=== PATIENT | female | born 1970 | race Caucasian/White ===

== ENCOUNTER → 2017-11-14 15:35 | Outpatient (CLI) | payer OTHER, SELFPAY ==
[2017-11-18 11:32] LABS: HPV HC, High Risk Negative (Negative)
== END ==
PROVIDERS: Visit Provider Obstetrics & Gynecology
DX: Z12.4 Encounter for screening for malignant neoplasm of cervix (principal)
CPT/HCPCS: 87624; 88175; G0145

== ENCOUNTER → 2018-02-03 10:59 | Outpatient (CLI) | payer OTHER, SELFPAY ==
--- NOTE | 2018-02-03 11:01 | BI_ITS ---
MAMMOGRAPHY - BILATERAL SCREENING REASON FOR EXAM: Female, 47 years old. Routine annual screening examination. PERTINENT HISTORY: Aunt with breast cancer. TECHNIQUE: Digital bilateral breast jose (3D mammographic acquisition) in the CC and MLO projections. 2-D mediolateral oblique (MLO) and craniocaudad (CC) views of both breasts were obtained. CAD: Full Field Digital Mammography with Computer Added Detection was performed. COMPARISON: Comparison is made with prior study dated February 01, 2017 and January 27, 2016. FINDINGS: Breast Composition: The breasts are heterogeneously dense, which may obscure small masses. There are no dominant masses or suspicious calcifications. No other significant abnormalities are identified. There has been no significant change since the prior study. BI/SCREENING MAMM (CAD), BILAT IMPRESSION: Stable bilateral screening mammogram. Yearly follow-up mammogram recommended. (A) ASSESSMENT CATEGORY: BIRADS Category 1: Negative. A letter regarding these results will be sent to the patient by the facility within 30 days. Approximately 10% of breast cancers are not detected by mammography. A normal mammogram should not delay biopsy of a clinically suspicious abnormality. [id number] Electronically Signed: Lonnie Yañez MD at 11:05 EST Tel [phone], Service support ,
== END ==
PROVIDERS: Family Provider Family Medicine; PCP Family Medicine; Referring Provider Obstetrics & Gynecology; Visit Provider Obstetrics & Gynecology
DX: Z12.31 Encounter for screening mammogram for malignant neoplasm of breast (principal)
CPT/HCPCS: 77063; 77067

== ENCOUNTER → 2018-11-12 14:35 | Outpatient (CLI) | payer OTHER, SELFPAY ==
[2018-11-11 14:25] VITALS: BMI 20.9
[2018-11-12 14:37] LABS: Mucous, Urine 0 SEEN /hpf (<or=2+)
[2018-11-12 14:49] LABS: Color, Urine Yellow (Yellow); Glucose, Dipstick Normal (Normal); Ketone-Dipstick 5 mg/dl (Negative); Leukocyte Esterase-Dipstick 100 /ul (Negative); Nitrite-Dipstick Negative (Negative); Occult Blood-Urine 250 /ul (Negative); Protein-Dipstick 30 mg/dl (Negative); Urine Bilirubin Dipstick Negative (Negative); Urine Clarity Sl. Cloudy (Clear); Urine Urobilinogen Normal (Normal)
[2018-11-12 14:56] LABS: Bacteria RARE /hpf (None Seen); Calcium Oxalate Crystals Ur 1+ /hpf (<or=2+); Red Blood Cells-Urine 10-25 SEEN /hpf (0-5); Squamous Epithelial Cells - UA 0-5 SEEN /hpf (5-10); White Blood Cells 0-5 SEEN /hpf (0-5)
== END ==
PROVIDERS: Family Provider Family Medicine; PCP Family Medicine; Referring Provider Physician Assistant Medical; Visit Provider Physician Assistant Medical
DX: R31.9 Hematuria, unspecified (principal)
CPT/HCPCS: 81001; 87086; 87088

== ENCOUNTER → 2018-11-16 | Outpatient (CLI) | payer OTHER, SELFPAY ==
[2018-11-11 14:25] VITALS: BMI 20.9
--- NOTE | 2018-11-16 11:25 | US_ITS ---
STUDY: RENAL ULTRASOUND - COMPLETE REASON FOR EXAM: Female, 48 years old. Gross hematuria. TECHNIQUE: Ultrasound evaluation of the kidneys was performed with real-time and static byrd-scale imaging. COMPARISON: None. FINDINGS: RIGHT KIDNEY: Normal location of the right kidney, which is normal in size. The right kidney measures 9.7 x 4.8 x 5.0 cm. There is a normal cortex of the right kidney. The renal cortex measures 1.6 cm. There is no right renal mass or cyst. There are no right renal calculi. There is no right hydronephrosis. DISTAL RIGHT URETER: There is non-visualization of the distal right ureter. There is no demonstrated right ureterovesical junction calculus. There is a visualized right ureteral jet. LEFT KIDNEY: Normal location of the left kidney, which is normal in size. The left kidney measures 10.8 x 5.5 x 4.5 cm. There is a normal cortex of the left kidney. The renal cortex measures 1.5 cm. There is no left renal mass or cyst. There are no left renal calculi. There is no left hydronephrosis. DISTAL LEFT URETER: There is non-visualization of the distal left ureter. There is no demonstrated left ureterovesical junction calculus. There is a visualized left ureteral jet. BLADDER: The distended urinary bladder has a volume of 458 ml. The empty urinary bladder has a volume of 0 ml. There is a normal wall thickness of the distended urinary bladder. There is no demonstrated mass within the urinary bladder. There are no demonstrated bladder calculi. Incidentally noted is a 4.9 cm low echogenicity but possibly solid mass in the left pelvis, most likely ovarian in origin. Pelvic ultrasound is recommended. US/Kidney and Bladder IMPRESSION: Normal ultrasound of the kidneys and urinary bladder. Possible 4.9 cm left ovarian mass. Pelvic ultrasound recommended. Electronically Signed: Raymond Aguayo MD at 17:26 EDT , Service support ,
== END | disposition home or self-care (01) ==
PROVIDERS: Family Provider Family Medicine; PCP Family Medicine; Referring Provider Family Medicine; Visit Provider Family Medicine
DX: R30.0 Dysuria (principal)
CPT/HCPCS: 76770

== ENCOUNTER → 2018-11-24 | Outpatient (CLI) | payer OTHER, SELFPAY ==
[2018-11-11 14:25] VITALS: BMI 20.9
--- NOTE | 2018-11-24 14:40 | US_ITS ---
We are attempting to reach an attending provider to discuss findings. An addendum with communication details will be sent when the communication is complete. STUDY: ULTRASOUND OF THE FEMALE PELVIS - COMPLETE REASON FOR EXAM: Female, 48 years old. Ovarian mass TECHNIQUE: Transabdominal and transvaginal ultrasound images were obtained of the pelvis TECHNICAL QUALITY: Adequate. COMPARISON: None. FINDINGS: The uterus measures 7.5 x 4 x 3.7 cm. Normal uterine cervix. The endometrium measures 2 mm in thickness. There is no demonstrated myometrial mass. The right ovary measures 1.6 x 1.4 x 0.9 cm. There is no right ovarian cyst or ovarian mass. There is no visualized right adnexal mass or complex lesion. There is normal arterial and normal venous vascularity. The left ovary measures 4.8 x 4.7 x 3.8 cm. There is enlargement of the left ovary with a masslike appearance and increased vascular flow within it. There is normal arterial and normal venous vascularity. There is no fluid in the cul-de-sac. US/Pelvic (Non ) IMPRESSION: Enlargement of the left ovary measuring 4.8 x 4.7 x 3.8 cm in size with a masslike appearance, with differential including hemorrhagic ovarian cyst, benign or malignant ovarian tumor, among other etiologies. Pelvic MRI is suggested for further characterization. Gynecologic consultation is suggested. Electronically Signed: Molina Johnson, at 17:56 EDT Tel , Service support ,
--- NOTE | 2018-11-24 15:09 | US_ITS ---
We are attempting to reach an attending provider to discuss findings. An addendum with communication details will be sent when the communication is complete. STUDY: ULTRASOUND OF THE FEMALE PELVIS - COMPLETE REASON FOR EXAM: Female, 48 years old. Ovarian mass TECHNIQUE: Transabdominal and transvaginal ultrasound images were obtained of the pelvis TECHNICAL QUALITY: Adequate. COMPARISON: None. FINDINGS: The uterus measures 7.5 x 4 x 3.7 cm. Normal uterine cervix. The endometrium measures 2 mm in thickness. There is no demonstrated myometrial mass. The right ovary measures 1.6 x 1.4 x 0.9 cm. There is no right ovarian cyst or ovarian mass. There is no visualized right adnexal mass or complex lesion. There is normal arterial and normal venous vascularity. The left ovary measures 4.8 x 4.7 x 3.8 cm. There is enlargement of the left ovary with a masslike appearance and increased vascular flow within it. There is normal arterial and normal venous vascularity. There is no fluid in the cul-de-sac. US/Transvaginal Non- IMPRESSION: Enlargement of the left ovary measuring 4.8 x 4.7 x 3.8 cm in size with a masslike appearance, with differential including hemorrhagic ovarian cyst, benign or malignant ovarian tumor, among other etiologies. Pelvic MRI is suggested for further characterization. Gynecologic consultation is suggested. Electronically Signed: Molina Johnson, at 17:56 EDT Tel , Service support ,
== END | disposition home or self-care (01) ==
LOC: US 14:33
PROVIDERS: Family Provider Family Medicine; PCP Family Medicine; Referring Provider Urology; Visit Provider Urology
DX: R31.0 Gross hematuria (principal); N83.209 Unspecified ovarian cyst, unspecified side
CPT/HCPCS: 76830; 76856; 93976

== ENCOUNTER → 2018-11-30 | Outpatient (CLI) | payer OTHER, SELFPAY ==
[2018-11-11 14:25] VITALS: BMI 20.9
--- NOTE | 2018-11-30 17:42 | CT_ITS ---
STUDY: CT ABDOMEN AND PELVIS WITH AND WITHOUT CONTRAST REASON FOR EXAM: Female, 48 years old. Gross hematuria RADIATION DOSAGE (If Supplied By Facility): CTDIvol = ( 10.85 ) mGy, DLP = ( 1420.98 ) mGycm TECHNIQUE: Transaxial images were obtained from the dome of the diaphragm to the symphysis pubis without oral contrast. 100 IV Isovue 370 was administered. Sagittal and coronal images were reconstructed. Individualized dose optimization techniques were used for this CT. COMPARISON: Ultrasound November 24, 2018 pelvis FINDINGS: The visualized lung bases are unremarkable. The visualized portions of the heart are within normal limits. Normal liver. Normal gallbladder and extrahepatic biliary system. Normal spleen. Normal pancreas. Normal bilateral adrenal glands. Normal right kidney. Normal left kidney. There is a small hiatal hernia. There is a distended appearance of the distal small bowel likely due to the amount of stool within the cecum and/or stasis. There is abundant stool in the colon. This is seen from the cecum to the mid abdomen where there is a tortuous appearance of the bowel and focal narrowing of the proximal sigmoid. The appendix is visualized and appears normal. Normal abdominal aorta. Normal inferior vena cava. Normal retroperitoneum. Normal urinary bladder. Is no visualized radiographic focal thickening of the bladder. With the delayed images there is no filling defect within the contrasted portion of the base of the bladder. Normal visualized uterus. There is a hyperdense appearing cystic structure in the left adnexa measuring 4.7 x 3.8 cm with Hounsfield units in the range of possibly solid or complex. Normal abdominal wall. There is mild multilevel spondylosis. CT/CT Abd/Pelvis W/WO Contrast IMPRESSION: There is an atypical appearing left ovarian mass with elevated Hounsfield units and enhancement with contrast with the differential including hemorrhagic cyst complex cyst or ovarian neoplasm for which further evaluation is recommended including a [employer] consult. Recent ultrasound has described similar findings. A follow-up MRI of the pelvis could potentially be helpful for further characterization clinically appropriate. No visualized renal ureteral or bladder calculi or evidence of renal mass. No visualized abnormal wall thickening of the bladder. Constipation. Recommend consideration for a follow-up study such barium enema to further evaluate the tortuosity and/or focal narrowing within the proximal sigmoid. There is no apparent associated mass this may be related to tortuosity. Electronically Signed: Jennifer Martel MD at 12:58 EDT Tel , Service support ,
== END | disposition home or self-care (01) ==
LOC: CT 17:39
PROVIDERS: Family Provider Family Medicine; PCP Family Medicine; Referring Provider Urology; Visit Provider Urology
DX: N83.209 Unspecified ovarian cyst, unspecified side (principal); R31.0 Gross hematuria
CPT/HCPCS: 74178; Q9967

== ENCOUNTER → 2018-12-05 | Outpatient (CLI) | payer OTHER, SELFPAY ==
[2018-11-11 14:25] VITALS: BMI 20.9
--- NOTE | 2018-12-05 | FLU_PTH ---
PATIENT: RUPAL SALEEM LOC: LAB U#:[id number] AGE/SX: 48/F ROOM: RE12/05/[address]: Dr. Lesvia Arteaga MD : 1970 BED: DIS: 12/05/2018 SPEC #: [id number] RECD: 12/05/18 13:21 STATUS: BRANDAN TIAN #: [id number] ISAMAR: 12/05/18 00:[address]: Lesvia Arteaga DEPT: CYTOLOGY RECD BY: Leslie Perla ENTERED: 12/06/18 09:08 SP TYPE: Fluid OTHR DR: MD Dr. Jerrod Davis MD Tissues: Urine Procedures: Special Stain Group II Cytospin Fluid HEADER OPERATION: Not noted PRE-OP DIAGNOSIS: Ovarian mass, gross hematuria, N83.291, R31.0 TISSUE SUBMITTED: Urine for cytology DIAGNOSIS CYTOLOGY Urine for cytology (cytospin): Negative for malignant cells. Marked acute inflammation. See comment. SJ:rg 12/07/18 COMMENT Organisms consistent with bacteria are also noted. Correlation with clinical findings and appropriate follow up are necessary. CYTOLOGY STUDY Slides are reviewed. CYTOLOGY GROSS Received is 50 ml of yellow cloudy fluid labeled with the patient's name and and designated per the requisition as urine. Submitted for cytology preparation. /CC:cc 12/06/18 TC:2 CPT: 60920
--- NOTE | 2018-12-05 | FLU_PTH ---
PATIENT: RUPAL SALEEM LOC: LAB U#:[id number] AGE/SX: 48/F ROOM: RE12/05/[address]: Dr. Lesvia Arteaga MD : 1970 BED: DIS: 12/05/2018 SPEC #: [id number] RECD: 12/05/18 13:21 STATUS: BRANDAN TIAN #: [id number] ISAMAR: 12/05/18 00:[address]: Lesvia Arteaga DEPT: CYTOLOGY RECD BY: Leslie Perla ENTERED: 12/06/18 09:08 SP TYPE: Fluid OTHR DR: MD Dr. Jerrod Davis MD Tissues: Urine Procedures: Special Stain Group II Cytospin Fluid HEADER OPERATION: Not noted PRE-OP DIAGNOSIS: Ovarian mass, gross hematuria, N83.291, R31.0 TISSUE SUBMITTED: Urine for cytology DIAGNOSIS CYTOLOGY Urine for cytology (cytospin): Negative for malignant cells. AM:joe 12/07/18 CYTOLOGY STUDY Slides are reviewed. CYTOLOGY GROSS Received is 50 ml of yellow cloudy fluid labeled with the patient's name and and designated per the requisition as urine. Submitted for cytology preparation. /CC:cc 12/06/18 TC:5 [facility]: [id number]
[2018-12-05 13:23] LABS: Cytology, Body Fluid / CSF SEE PATHOLOGY REPORT
[2018-12-07 17:32] LABS: Cancer Antigen 125 10.4 U/mL (0.0-38.1)
== END | disposition home or self-care (01) ==
LOC: LAB 13:19
PROVIDERS: Family Provider Family Medicine; PCP Family Medicine; Referring Provider Urology; Visit Provider Urology
DX: R19.00 Intra-abdominal and pelvic swelling, mass and lump, unspecified site (principal); R31.0 Gross hematuria; N83.209 Unspecified ovarian cyst, unspecified side
CPT/HCPCS: 86304; 88108; 88305; 88313

== ENCOUNTER 2018-12-20 05:28 | Day surgery (SDC) | payer OTHER, SELFPAY ==
[2018-12-13 12:33] VITALS: BMI 20.9
[2018-12-20 05:46] VITALS: BP 117/61; PULSE 72; RESP 16; TEMP 35.8; O2SAT 100; BMI 20.6
[2018-12-20 05:48] LABS: Internal QC Validated? YES +Cl - CLEAR BKGD; Pregnancy, Urine Negative Negative
--- NOTE | 2018-12-20 05:58 | SUR.PREOP ---
TAP WATER ENEMA GIVEN.
[2018-12-20] MEDS: Lactated Ringers 1,000 ML 100 ML IV (06:19)
--- NOTE | 2018-12-20 06:30 | PCM.HP.BLA ---
Problem List (1) Constipation Status: Acute Qualifiers: Constipation type: unspecified constipation type History and Physical Date of Admission: 12/20/18 Intake Visit Reasons: Abnormal CT scan Chief Complaint: constipaton/ abn CT scan Company [employer]cer Required: No Is patient in pain?: No Allergies promethazine Allergy (Intermediate, Verified 12/13/18 12:32) Unknown Sulfa (Sulfonamide Antibiotics) Allergy (Mild, Verified 12/13/18 12:32) Rash Medications zolmitriptan 2.5 mg tablet 2.5 mg PO ONCE 02/23/17 [History Confirmed 12/13/18] acetaminophen 325 mg capsule 325 mg PO Q6H 10/06/18 [History Confirmed 12/13/18] aspirin 325 mg tablet 325 mg PO DAILY 10/06/18 [History Confirmed 12/13/18] gdgpvyx-zakhkjrzjupyq-xdmuqfvi 250 mg-250 mg-65 mg tablet 2 tab PO Q6H 10/06/18 [History Confirmed 12/13/18] ibuprofen 200 mg capsule 200 mg PO Q6H 10/06/18 [History Confirmed 12/13/18] Is last menstrual period known: No Post menopausal: No Patient : No PFSH Medical History (Updated 12/13/18 @ 13:51 by Jack Washington MD) Constipation (Acute) Abnormal CT of the abdomen (Acute) Constipation (Acute) Hematuria (Acute) Ovarian mass (Acute) History of wisdom tooth extraction (Acute) Migraines (Acute) Spider veins (Acute) Surgical History H/O colposcopy with cervical biopsy (Acute) History of surgery on arm (Acute) Family History Mother No problems noted. Social History (Updated 12/13/18 @ 13:56 by Jack Washington MD) Smoking Status: Former smoker alcohol intake: current alcohol intake frequency: holidays/special occasions only Alcohol type: hard liquor substance use type: does not use HPI HPI HPI: RUPAL SALEEM is a 48 F who presents to the office today for HPI HPI Surgical H&P: Yes HPI: RUPAL SALEEM is a 48 F who presents to the office today for surgical consultation regarding a variety of presentations. Approximately mid October the patient awoke with sudden urinary urgency had gross hematuria and UTI-like symptoms. That persisted all morning but then by afternoon resolved. 10 days later she had a repeat similar episode. She was able to submit a urinalysis which demonstrated red blood cells but there was no growth on culture. The patient saw Dr. Jovanni Ann who obtained a renal ultrasound. No acute renal finding however left ovarian cystic lesion. A dedicated pelvic ultrasound was obtained and a CT scan. The patient was seen in consultation by urologist Dr. Arteaga.. Urine for cytology was obtained that was negative. Recommendations for cystoscopy and that is scheduled for December 21. The patient states that she has not had any further gross hematuria. A CT scan was obtained again with results below. Most pertinently there is a cystic structure of left thickness and measuring 4.7 x 3.8 cm possibly solid or complex. There was also felt to be tortuosity or focal narrowing within the proximal sigmoid colon. The patient additionally has been seen by gynecologic [facility] oncology Dr. Jerrod Gonzalez. He offered the patient consideration for left will correct to me with potential more definitive surgery of ovarian malignancy was identified. In the meantime he obtained a Ca1 25 which is 10.4 well within normal range. The patient in addition has had recent symptoms of severe constipation. She does run and that usually assist but it is not currently. She is been taking MiraLAX every other day with little improvement. She feels bloated but does not have distinct pain Direct family history is negative for colon cancer or colon polyps. [facility] Imaging Services [address] [place] [address] CT Abd/Pelvis W/WO Contrast MR#: [id number] Name: RUPAL SALEEM [facility] #:[id number] : 1970F 48 From: Jennifer Martel MD PCP:Jovanni Ann MD Status:REG CLI Study:CT Abd/Pelvis W/WO Contrast Date of Exam:11/30/18 Exam#[id number] Ordering Dr: Lesvia Arteaga MD STUDY: CT ABDOMEN AND PELVIS WITH AND WITHOUT CONTRAST REASON FOR EXAM: Female, 48 years old. Gross hematuria RADIATION DOSAGE (If Supplied By Facility): CTDIvol = ( 10.85 ) mGy, DLP = ( 1420.98 ) mGycm TECHNIQUE: Transaxial images were obtained from the dome of the diaphragm to the symphysis pubis without oral contrast. 100 IV Isovue 370 was administered. Sagittal and coronal images were reconstructed. Individualized dose optimization techniques were used for this CT. COMPARISON: Ultrasound November 24, 2018 pelvis FINDINGS: The visualized lung bases are unremarkable. The visualized portions of the heart are within normal limits. Normal liver. Normal gallbladder and extrahepatic biliary system. Normal spleen. Normal pancreas. Normal bilateral adrenal glands. Normal right kidney. Normal left kidney. There is a small hiatal hernia. There is a distended appearance of the distal small bowel likely due to the amount of stool within the cecum and/or stasis. There is abundant stool in the colon. This is seen from the cecum to the mid abdomen where there is a tortuous appearance of the bowel and focal narrowing of the proximal sigmoid. The appendix is visualized and appears normal. Normal abdominal aorta. Normal inferior vena cava. Normal retroperitoneum. Normal urinary bladder. Is no visualized radiographic focal thickening of the bladder. With the delayed images there is no filling defect within the contrasted portion of the base of the bladder. Normal visualized uterus. There is a hyperdense appearing cystic structure in the left adnexa measuring 4.7 x 3.8 cm with Hounsfield units in the range of possibly solid or complex. Normal abdominal wall. There is mild multilevel spondylosis. CT/CT Abd/Pelvis W/WO Contrast IMPRESSION: There is an atypical appearing left ovarian mass with elevated Hounsfield units and enhancement with contrast with the differential including hemorrhagic cyst complex cyst or ovarian neoplasm for which further evaluation is recommended including a MIXING OPERATOR consult. Recent ultrasound has described similar findings. A follow-up MRI of the pelvis could potentially be helpful for further characterization clinically appropriate. No visualized renal ureteral or bladder calculi or evidence of renal mass. No visualized abnormal wall thickening of the bladder. Constipation. Recommend consideration for a follow-up study such barium enema to further evaluate the tortuosity and/or focal narrowing within the proximal sigmoid. There is no apparent associated mass this may be related to tortuosity. Electronically Signed: Jennifer Martel MD at 12:58 EDT Tel , Service support , [facility] Imaging Services [address] [place] [address] Pelvic (Non ) MR#: [id number] Name: RUPAL SALEEM MRep #:[id number] : 1970F 48 From: Molina Johnson MD PCP:Jovanni Ann MD Status:REG CLI Study:Pelvic (Non ) Date of Exam:11/24/18 Exam#[id number] Ordering Dr: Lesvia Arteaga MD ADDENDUM by Molina Johnson MD on 11/24/18 at 7432 STUDY: ULTRASOUND OF THE FEMALE PELVIS - COMPLETE REASON FOR EXAM: Female, 48 years old. Ovarian mass TECHNIQUE: Transabdominal and transvaginal ultrasound images were obtained of the pelvis TECHNICAL QUALITY: Adequate. COMPARISON: None. FINDINGS: The uterus measures 7.5 x 4 x 3.7 cm. Normal uterine cervix. The endometrium measures 2 mm in thickness. There is no demonstrated myometrial mass. The right ovary measures 1.6 x 1.4 x 0.9 cm. There is no right ovarian cyst or ovarian mass. There is no visualized right adnexal mass or complex lesion. There is normal arterial and normal venous vascularity. The left ovary measures 4.8 x 4.7 x 3.8 cm. There is enlargement of the left ovary with a masslike appearance and increased vascular flow within it. There is normal arterial and normal venous vascularity. There is no fluid in the cul-de-sac. 11/24/18 8007 Date cc: Jovanni Ann MD; Lesvia Arteaga MD ~* Signed ADDENDUM by Molina Johnson MD on 11/24/18 at 1759 US/Pelvic (Non ) IMPRESSION: Enlargement of the left ovary measuring 4.8 x 4.7 x 3.8 cm in size with a masslike appearance, with differential including hemorrhagic ovarian cyst, benign or malignant ovarian tumor, among other etiologies. Pelvic MRI is suggested for further characterization. Gynecologic consultation is suggested. N.B. : The above information has been verbally conveyed by Molina Johnson to n/a, AA, on 11/24/2018 18:51:02 (ET). Electronically Signed: Molina Johnson, at 17:56 EDT Tel , Service support , 11/24/18 1636 Date cc: Jovanni Ann MD; Lesvia Arteaga MD ~* Signed We are attempting to reach an attending provider to discuss findings. An addendum with communication details will be sent when the communication is complete. STUDY: ULTRASOUND OF THE FEMALE PELVIS - COMPLETE REASON FOR EXAM: Female, 48 years old. Ovarian mass TECHNIQUE: Transabdominal and transvaginal ultrasound images were obtained of the pelvis TECHNICAL QUALITY: Adequate. COMPARISON: None. FINDINGS: The uterus measures 7.5 x 4 x 3.7 cm. Normal uterine cervix. The endometrium measures 2 mm in thickness. There is no demonstrated myometrial mass. The right ovary measures 1.6 x 1.4 x 0.9 cm. There is no right ovarian cyst or ovarian mass. There is no visualized right adnexal mass or complex lesion. There is normal arterial and normal venous vascularity. The left ovary measures 4.8 x 4.7 x 3.8 cm. There is enlargement of the left ovary with a masslike appearance and increased vascular flow within it. There is normal arterial and normal venous vascularity. There is no fluid in the cul-de-sac. US/Pelvic (Non ) IMPRESSION: Enlargement of the left ovary measuring 4.8 x 4.7 x 3.8 cm in size with a masslike appearance, with differential including hemorrhagic ovarian cyst, benign or malignant ovarian tumor, among other etiologies. Pelvic MRI is suggested for further characterization. Gynecologic consultation is suggested. Electronically Signed: Molina Johnson, at 17:56 EDT Tel , Service support , CC: Jovanni Ann MD; Lesvia Arteaga MD ~ Aids Nurse: Signed [facility] Imaging Services [address] [facility] [place] [address] Transvaginal Non- MR#: [id number] Name: RUPAL SALEEM [facility] #:[id number] : 1970F 48 From: Molina Johnson MD PCP:Jovanni Ann MD Status:REG CLI Study:Transvaginal Non- Date of Exam:11/24/18 Exam#[id number] Ordering Dr: Lesvia Arteaga MD ADDENDUM by Molina Johnson MD on 11/24/18 at 175 STUDY: ULTRASOUND OF THE FEMALE PELVIS - COMPLETE REASON FOR EXAM: Female, 48 years old. Ovarian mass TECHNIQUE: Transabdominal and transvaginal ultrasound images were obtained of the pelvis TECHNICAL QUALITY: Adequate. COMPARISON: None. FINDINGS: The uterus measures 7.5 x 4 x 3.7 cm. Normal uterine cervix. The endometrium measures 2 mm in thickness. There is no demonstrated myometrial mass. The right ovary measures 1.6 x 1.4 x 0.9 cm. There is no right ovarian cyst or ovarian mass. There is no visualized right adnexal mass or complex lesion. There is normal arterial and normal venous vascularity. The left ovary measures 4.8 x 4.7 x 3.8 cm. There is enlargement of the left ovary with a masslike appearance and increased vascular flow within it. There is normal arterial and normal venous vascularity. There is no fluid in the cul-de-sac. 11/24/18 1756 Date cc: Jovanni Ann MD; Lesvia Arteaga MD ~* Signed ADDENDUM by Molina Johnson MD on 11/24/18 at 1759 US/Transvaginal Non- IMPRESSION: Enlargement of the left ovary measuring 4.8 x 4.7 x 3.8 cm in size with a masslike appearance, with differential including hemorrhagic ovarian cyst, benign or malignant ovarian tumor, among other etiologies. Pelvic MRI is suggested for further characterization. Gynecologic consultation is suggested. N.B. : The above information has been verbally conveyed by Molina Johnson to n/a, AA, on 11/24/2018 18:51:02 (ET). Electronically Signed: Molina Johnson, at 17:56 EDT Tel , Service support , 11/24/18 7529 Date cc: Jovanni Ann MD; Lesvia Arteaga MD ~* Signed We are attempting to reach an attending provider to discuss findings. An addendum with communication details will be sent when the communication is complete. STUDY: ULTRASOUND OF THE FEMALE PELVIS - COMPLETE REASON FOR EXAM: Female, 48 years old. Ovarian mass TECHNIQUE: Transabdominal and transvaginal ultrasound images were obtained of the pelvis TECHNICAL QUALITY: Adequate. COMPARISON: None. FINDINGS: The uterus measures 7.5 x 4 x 3.7 cm. Normal uterine cervix. The endometrium measures 2 mm in thickness. There is no demonstrated myometrial mass. The right ovary measures 1.6 x 1.4 x 0.9 cm. There is no right ovarian cyst or ovarian mass. There is no visualized right adnexal mass or complex lesion. There is normal arterial and normal venous vascularity. The left ovary measures 4.8 x 4.7 x 3.8 cm. There is enlargement of the left ovary with a masslike appearance and increased vascular flow within it. There is normal arterial and normal venous vascularity. There is no fluid in the cul-de-sac. US/Transvaginal Non- IMPRESSION: Enlargement of the left ovary measuring 4.8 x 4.7 x 3.8 cm in size with a masslike appearance, with differential including hemorrhagic ovarian cyst, benign or malignant ovarian tumor, among other etiologies. Pelvic MRI is suggested for further characterization. Gynecologic consultation is suggested. Electronically Signed: Molina Johnson, at 17:56 EDT Tel , Service support , CC: Jovanni Ann MD; Lesvia Arteaga MD ~ Aids Nurse: Signed [facility] Imaging Services [address] [place] [id number] Kidney and Bladder MR#: [id number] Name: RUPAL SALEEM [facility] #:[id number] : 1970F 48 From: Raymond Aguayo MD PCP:Jovanni Ann MD Status:[facility] CLI Study:Kidney and Bladder Date of Exam:11/16/18 Exam#[id number] Ordering Dr: Jovanni Ann MD STUDY: RENAL ULTRASOUND - COMPLETE REASON FOR EXAM: Female, 48 years old. Gross hematuria. TECHNIQUE: Ultrasound evaluation of the kidneys was performed with real-time and static byrd-scale imaging. COMPARISON: None. FINDINGS: RIGHT KIDNEY: Normal location of the right kidney, which is normal in size. The right kidney measures 9.7 x 4.8 x 5.0 cm. There is a normal cortex of the right kidney. The renal cortex measures 1.6 cm. There is no right renal mass or cyst. There are no right renal calculi. There is no right hydronephrosis. DISTAL RIGHT URETER: There is non-visualization of the distal right ureter. There is no demonstrated right ureterovesical junction calculus. There is a visualized right ureteral jet. LEFT KIDNEY: Normal location of the left kidney, which is normal in size. The left kidney measures 10.8 x 5.5 x 4.5 cm. There is a normal cortex of the left kidney. The renal cortex measures 1.5 cm. There is no left renal mass or cyst. There are no left renal calculi. There is no left hydronephrosis. DISTAL LEFT URETER: There is non-visualization of the distal left ureter. There is no demonstrated left ureterovesical junction calculus. There is a visualized left ureteral jet. BLADDER: The distended urinary bladder has a volume of 458 ml. The empty urinary bladder has a volume of 0 ml. There is a normal wall thickness of the distended urinary bladder. There is no demonstrated mass within the urinary bladder. There are no demonstrated bladder calculi. Incidentally noted is a 4.9 cm low echogenicity but possibly solid mass in the left pelvis, most likely ovarian in origin. Pelvic ultrasound is recommended. US/Kidney and Bladder IMPRESSION: Normal ultrasound of the kidneys and urinary bladder. Possible 4.9 cm left ovarian mass. Pelvic ultrasound recommended. Electronically Signed: Raymond Aguayo MD at 17:26 EDT , Service support , Current symptoms: Denies cough, chest pain, wheezing or hoarseness ROS General General: No weight change, appetite, fatigue, colon cancer, breast cancer or weakness HEENT HEENT: No difficulty swallowing, eye injury, eye surgery, swollen glands or hoarseness Endo Endocrine: No thyroid disease, diabetes mellitus, thyroid cancer, Hair loss, heat intolerance or cold intolerance Breast Breast: No left breast lump, right breast lump, nipple discharge, breast pain, abnormal mammogram, abnormal US or breast enlargement Cardio Cardiovascular: No murmur, pacemaker, heart disease, atrial fibrillation, high blood pressure, heart attack, heart stent, palpitations, shortness of breat with exertion or chest pain Resp Respiratory: No shortness of breath, No sleep apnea, No cough, No COPD, No asthma, No emphysema, No wheezing Gastro Gastrointestinal: No abdominal pain, No nausea or vomiting, No diarrhea, Yes constipation, No blood in stool, No acid reflux, No hemorrhoids, No ulcers, No gallbladder problem, No black,tarry stools Kashif Hematologic: No blood thinners, No blood disorders, Yes bleeding, No anemia, No blood clots Additional Details: urine Neuro Neurologic: No weakness Exam Const General: cooperative, healthy appearing, comfortable, no acute distress Nutritional Appearance: underweight Orientation: alert, awake, oriented x3 HENMT Head: normal to inspection Eyes General: appearance normal, both eyes and all related structures Chest Breast Palpation: No nipple discharge Resp Effort & Inspection: normal respiratory effort Auscultation: clear to auscultation bilaterally Cardio Rate: regular rate Rhythm: regular rhythm Heart Sounds: no murmurs GI Inspection: normal to inspection Palpation: soft Other: Softly distended, bowel sounds present nonspecific, very mild tenderness palpation left lower quadrant without distinct mass Skin General: no rashes or lesions noted Neuro Cognition: normal cognition Extrem General: no calf tenderness bilaterally Psych Affect: normal affect Assessment & Plan 1. Gross hematuria R31.0 2. Abnormal Screening Computed Tomography (CT) of Chest R93.[address] of the abdomen R93.5 4. Constipation, unspecified constipation type K59.00 Plan I recommend to the patient that she pursue definitive treatment of the left ovary with consideration for resection and additional surgical intervention as indicated I recommended the patient that she pursue the recommended cystoscopy I recommended the patient that we pursue a colonoscopy with possible biopsy or polypectomy. The patient has already initiated every other day MiraLAX with minimal improvement. She is aware of the technique, benefits, risks, alternatives. We will expedite her scheduling. Because of her severe constipation we will initiate a 2-day bowel prep. She has had an opportunity to ask and have questions answered. We will proceed as noted. I anticipate using monitored anesthesia care because of the severity of her constipation and tortuosity identified. I appreciate the opportunity of assisting with her surgical care. CC: Dr. Jovanni Ann and Dr. Lesvia Arteaga and Dr. Jerrod Washington M.D., F.A.C.S. Coding Level of Care Code Off vis,new,level 3 Diagnoses Gross hematuria R31.0 Abnormal Screening Computed Tomography (CT) of Chest R93.[address] of the abdomen R93.5 Constipation, unspecified constipation type K59.00 ??Constipation type: unspecified constipation type 12/13/18 1356 <Electronically signed by Jack Washington MD> Date Jack Washington MD Cosigner Signature: Date (if applicable) CC: Jovanni Ann MD; Lesvia Arteaga MD; Jerrod Gonzalez ~ I have re-examined the patient. There are no clinical changes since date of exam.
[2018-12-20 07:00] VITALS: BP 117/61; BP 93/49; PULSE 71; RESP 16; TEMP 36.2; O2SAT 100
[2018-12-20 07:05] VITALS: BP 117/61; BP 117/63; PULSE 71; RESP 16; O2SAT 100
[2018-12-20 07:10] VITALS: BP 111/73; BP 117/61; PULSE 70; RESP 16; O2SAT 100
[2018-12-20 07:15] VITALS: BP 117/61; BP 117/66; PULSE 67; RESP 16; TEMP 36.1; O2SAT 100
[2018-12-20 07:19] VITALS: BP 117/61
--- NOTE | 2018-12-21 11:39 | OP.ENDO_ITS ---
12/21/2018 Jerrod Gonzalez [address] [facility] [address] [place] [address] Re : Colonoscopy procedure for Phylicia Gilman Dear Dr. Gonzalez This procedure was performed on Thursday, December 20, 2018. My impressions and recommendations are as follows: Impressions : - Tortuous colon. - The examination was otherwise normal. - No specimens collected. Recommendations : - Discharge patient to home. - Resume previous diet. - Continue present medications. - Repeat colonoscopy in 10 years for screening purposes. My findings are described in the full procedure note, which is enclosed. If I can be of further assistance, please feel free to contact me at Doctor phone number(s): Work: . Sincerely, Jack Washington MD 12/20/2018 7:06:27 AM This report has been signed electronically.
== END 2018-12-20 07:50 | disposition home or self-care (01) ==
LOC: EN 05:29 → AC 05:30
PROVIDERS: Anesthesiology; Family Provider Family Medicine; PCP Family Medicine; Referring Provider Family Medicine; Visit Provider Surgery
PROC: 0DJD8ZZ Inspection of Lower Intestinal Tract, Via Natural or Artificial Opening Endoscopic (ICD-10-PCS; CPT 45378; principal; 2018-12-20 06:25)
DX: R93.5 Abnormal findings on diagnostic imaging of other abdominal regions, including retroperitoneum (principal); K59.00 Constipation, unspecified; G43.909 Migraine, unspecified, not intractable, without status migrainosus; R63.6 Underweight; Z68.20 Body mass index [BMI] 20.0-20.9, adult; Z79.82 Long term (current) use of aspirin; Z79.899 Other long term (current) drug therapy; Z87.891 Personal history of nicotine dependence
CPT/HCPCS: 45378; 81025; J7120; J2405

== ENCOUNTER → 2019-02-28 14:39 | Outpatient (CLI) | payer OTHER, SELFPAY ==
[2018-11-11 14:25] VITALS: BMI 20.9
--- NOTE | 2019-02-28 14:41 | BI_ITS ---
MAMMOGRAPHY - BILATERAL SCREENING REASON FOR EXAM: Female, 48 years old. Routine annual screening examination. PERTINENT HISTORY: Aunt with breast cancer. TECHNIQUE: Digital bilateral breast gladis (3D mammographic acquisition) in the CC and MLO projections. 2-D mediolateral oblique (MLO) and craniocaudad (CC) views of both breasts were obtained. CAD: Full Field Digital Mammography with Computer Added Detection was performed. COMPARISON: Comparison is made with prior study dated #2017 and February 01, 2017. FINDINGS: Breast Composition: The breasts are extremely dense, which lowers the sensitivity of mammography. There are no dominant masses or suspicious calcifications. No other significant abnormalities are identified. There has been no significant change since the prior study. BI/SCREEN MAMM (CAD) W/GLADIS BILAT IMPRESSION: Stable bilateral screening mammogram. Yearly follow-up mammogram recommended. (A) ASSESSMENT CATEGORY: BIRADS Category 1: Negative. A letter regarding these results will be sent to the patient by the facility within 30 days. Approximately 10% of breast cancers are not detected by mammography. A normal mammogram should not delay biopsy of a clinically suspicious abnormality. [id number] Electronically Signed: Lonnie Yañez, at 15:44 EST , Service support ,
== END ==
PROVIDERS: Family Provider Family Medicine; PCP Family Medicine; Referring Provider Family Medicine; Visit Provider Family Medicine
DX: Z12.31 Encounter for screening mammogram for malignant neoplasm of breast (principal)
CPT/HCPCS: 77063; 77067

== ENCOUNTER → 2021-11-10 | Outpatient (CLI) | payer OTHER, SELFPAY ==
[2021-11-10 10:42] LABS: Anion Gap 5 (5-15); BUN 13 mg/dL (7-18); BUN/Creat Ratio 18.6 RATIO (10-20); Calcium,Total 9.4 mg/dL (8.5-10.1); Chloride 105 mmol/L (98-107); EST Glomerular Filtration Rate 93 mL/min (>60); Est Glom Filt Rate - Afr Amer 113 mL/min (>60); Estradiol 14.4 pg/mL; Glucose 90 mg/dL (74-106); Potassium 3.5 mmol/L (3.5-5.1); Sodium Level 140 mmol/L (136-145); Thyroid Stim Hormone (TSH) 1.54 uIU/mL (0.358-3.74)
[2021-11-10 10:50] LABS: Progesterone Level 0.41 ng/mL (See Comment)
[2021-11-21 12:08] LABS: Testosterone, Free < 0.05 ng/dL (0.10-0.85); Testosterone, Total < 3 ng/dL (4-50)
[2021-11-22 11:45] LABS: Testosterone, % Free 1.55 % (0.50-2.80)
== END | disposition home or self-care (01) ==
PROVIDERS: PCP Family Medicine; Referring Provider Family Medicine; Visit Provider Family Medicine
DX: Z00.00 Encounter for general adult medical examination without abnormal findings (principal); E87.5 Hyperkalemia
CPT/HCPCS: 36415; 80048; 82670; 84144; 84402; 84403; 84443

== ENCOUNTER → 2021-12-07 | Outpatient (CLI) | payer OTHER, SELFPAY ==
[2021-12-07 12:14] LABS: Absolute Lymphocyte Count 1.66 X10^3/uL (0.83-4.51); Absolute Neutrophil Count 1.9 X10^3/uL (2.0-7.7); Eosinophil# 0.04 X10^3/uL; Hematocrit 43.2 % (37-47); Hemoglobin 14.3 g/dL (12.0-15.0); Lymphocyte # 1.66 X10^3/ul (0.83-4.51); Lymphocyte % 42.9 % (19-41); Mean Corp Hgb Conc 33.1 g/dL (32-36); Mean Corpuscular Hgb 29.5 pg (27.0-32.0); Mean Corpuscular Volume 89.3 fL (81-99); Mean Platelet Vol. 10.8 fl (6.2-12.0); Monocyte% 7.8 % (0-10); NRBC Flagged by Analyzer 0 % (0-5); Neutrophil # 1.86 X10^3/uL (2.7-7.7); Platelet Count 272 K/mm3 (150-450); RBC Distribution Width CV 11.3 % (11.6-14.6); RBC Distribution Width SD 36.8 fl (35.1-43.9); Red Blood Count 4.84 M/mm3 (4.2-5.4); White Blood Count 3.9 K/mm3 (4.4-11.0)
[2021-12-07 13:11] LABS: Vitamin B12 1255 pg/mL (211-911)
[2021-12-07 13:38] LABS: AST(SGOT) 13 U/L (15-37); Alanine Aminotransfer ALT/SGPT 25 U/L (13-56); Albumin, Serum 3.7 g/dL (3.2-5.0); Alkaline Phosphatase 66 U/L (45-117); Anion Gap 9 (5-15); BUN 15 mg/dL (7-18); BUN/Creat Ratio 19.7 RATIO (10-20); Chloride 104 mmol/L (98-107); Creatinine, Serum 0.76 mg/dL (0.55-1.02); EST Glomerular Filtration Rate 84 mL/min (>60); Est Glom Filt Rate - Afr Amer 102 mL/min (>60); Globulin 3.8 g/dL (2.2-4.2); Glucose 87 mg/dL (74-106); Potassium 3.7 mmol/L (3.5-5.1); Protein, Total 7.5 g/dL (6.4-8.2); Sodium Level 140 mmol/L (136-145); T4 Free Direct 0.98 ng/dL (0.76-1.46)
== END | disposition home or self-care (01) ==
LOC: MFPLAB 11:03
PROVIDERS: PCP Family Medicine; Visit Provider Family Medicine
DX: R53.83 Other fatigue (principal)
CPT/HCPCS: 36415; 80053; 82607; 82746; 84439; 84443; 85025

== ENCOUNTER → 2023-06-24 | Outpatient (CLI) | payer OTHER, SELFPAY ==
[2023-06-24 07:44] LABS: Absolute Lymphocyte Count 1.74 X10^3/uL (0.83-4.51); Absolute Neutrophil Count 1.6 X10^3/uL (2.0-7.7); Basophil# 0.03 X10^3/uL; Basophil% 0.8 % (0-1); Eosinophil# 0.11 X10^3/uL; Eosinophils% 2.9 % (0-5); Hematocrit 42.9 % (37-47); Lymphocyte # 1.74 X10^3/ul (0.83-4.51); Lymphocyte % 45.2 % (19-41); Mean Corp Hgb Conc 32.6 g/dL (32-36); Mean Platelet Vol. 10.4 fl (6.2-12.0); Monocyte# 0.39 X10^3/uL; Monocyte% 10.1 % (0-10); NRBC Flagged by Analyzer 0 % (0-5); Neutrophil # 1.57 X10^3/uL (2.7-7.7); Neutrophil % 40.7 % (47-70); Platelet Count 255 K/mm3 (150-450); RBC Distribution Width CV 11.8 % (11.6-14.6); RBC Distribution Width SD 37.6 fl (35.1-43.9); Red Blood Count 4.82 M/mm3 (4.2-5.4); White Blood Count 3.9 K/mm3 (4.4-11.0)
[2023-06-24 08:46] LABS: ALB/GLOB Ratio 1.1 RATIO (0.9-2.4); AST(SGOT) 18 U/L (15-37); Alanine Aminotransfer ALT/SGPT 29 U/L (13-56); Albumin, Serum 3.9 g/dL (3.2-5.0); Alkaline Phosphatase 65 U/L (45-117); Anion Gap 6 (5-15); BUN 18 mg/dL (7-18); BUN/Creat Ratio 20.2 RATIO (10-20); Calcium,Total 8.9 mg/dL (8.5-10.1); Chloride 106 mmol/L (98-107); Creatinine, Serum 0.89 mg/dL (0.55-1.02); EST Glomerular Filtration Rate 70 mL/min (>60); Est Glom Filt Rate - Afr Amer 85 mL/min (>60); Estradiol 17.1 pg/mL; Follicle Stimulating Hormone 63.8 mIU/mL; Globulin 3.5 g/dL (2.2-4.2); Glucose 91 mg/dL (74-106); Luteinizing Hormone 25.9 mIU/mL; Potassium 3.4 mmol/L (3.5-5.1); Protein, Total 7.4 g/dL (6.4-8.2); Sodium Level 139 mmol/L (136-145); Thyroid Stim Hormone (TSH) 1.19 uIU/mL (0.358-3.74)
[2023-06-27 12:08] LABS: Vitamin D 1,25-Dihydroxy 40.4 pg/mL (24.8-81.5)
== END | disposition home or self-care (01) ==
PROVIDERS: PCP Family Medicine; Referring Provider Nurse Practitioner Family; Visit Provider Nurse Practitioner Family
DX: N95.1 Menopausal and female climacteric states (principal)
CPT/HCPCS: 36415; 80053; 82652; 82670; 83001; 83002; 84443; 85025